=== PATIENT | male | born 1975 | race Hispanic/Latino ===

== ENCOUNTER 2019-06-21 12:10 | Emergency (ER) | payer SELFPAY ==
--- NOTE | 2019-06-21 12:42 | RAD REPORT ---
EXAM DESCRIPTION: CT - Head Brain Wo Cont - 06/21/2019 12:33 pm CLINICAL HISTORY: HEADACHE Trauma, head injury and headache COMPARISON: No comparisons TECHNIQUE: All CT scans are performed using dose optimization technique as appropriate and may inclu de automated exposure control or mA/KV adjustment according to patient size. FINDINGS: No intracranial hemorrhage, hydrocephalus or extra-axial fluid collection.No areas of brai n edema or evidence of midline shift. The paranasal sinuses and mastoids are clear. The calvarium is intact. IMPRESSION: No acute intracranial abnormality.
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
[2019-06-21 13:34] VITALS: BP 125/92; TEMP 97.9; O2SAT 100
== END 2019-06-21 13:29 | disposition home or self-care (01) ==
LOC: ER 12:10
DX: R51 Headache (principal); V43.52XA Car driver injured in collision with other type car in traffic accident, initial encounter; Z88.6 Allergy status to analgesic agent
CPT/HCPCS: 70450; 99284

== ENCOUNTER 2019-08-22 18:10 | Emergency (ER) | payer OTHER ==
[2019-08-22 18:47] LABS: Absolute Lymphocytes (CBC) 0.3 K/uL (0.7-4.9); Basophils % 0.1 % (0-1.3); Hematocrit 49.1 % (39.6-49.0); Lymphocytes % 2.1 % (15.3-44.8); MPV 10.9 fL (7.6-11.3); RBC Red Blood Cell Count 5.44 M/uL (4.33-5.43)
[2019-08-22] MEDS ORDERED: ONDANSETRON 4 MG/2 ML VIAL ONE ×2 (19:04→21:19)
[2019-08-22] MEDS ORDERED: MORPHINE 4 MG/ML SYR ONE (19:04)
[2019-08-22] MEDS ORDERED: NA CHLORIDE 0.9% 1,000 ML ONE (19:05)
[2019-08-22 19:11] LABS: ALT/SGPT 36 U/L (12-78); Albumin 4.4 g/dL (3.4-5.0); Alkaline Phosphatase 114 U/L (45-117); BUN Blood Urea Nitrogen 13 mg/dL (7-18); Bicarbonate 26 mmol/L (21-32); Bilirubin Direct 0.2 mg/dL (0-0.2); Bilirubin Total 0.7 mg/dL (0.2-1.0); Glucose Level 126 mg/dL (74-106); Lipase 103 U/L (73-393); Potassium 3.6 mmol/L (3.5-5.1); Protein, Total 8.6 g/dL (6.4-8.2); Sodium Level 140 mmol/L (136-145)
[2019-08-22 19:16] LABS: AST/SGOT < 3 U/L (15-37)
[2019-08-22 19:54] LABS: Blood Morphology Comment NOT SEEN (NOT SEEN); Platelet Estimate DECR; Urine White Blood Cell Casts OK
--- NOTE | 2019-08-22 20:41 | RAD REPORT ---
EXAM DESCRIPTION: CT - Abdomen Pelvis W Contrast - 08/22/2019 8:11 pm CLINICAL HISTORY: ABD PAIN, diarrhea, abdominal AA COMPARISON: None. TECHNIQUE: Biphasic, helical CT imaging of the abdomen and pelvis was performed following 100 ml non -ionic IV contrast. No oral contrast administered. All CT scans are performed using dose optimization technique as appropriate and may include automated exposure control or mA/KV adjustment according to patient size. FINDINGS: No suspicious findings in the lung bases. The liver, spleen, and pancreas show no suspicious findings. Gallbladder and biliary tree are also wi thout suspicious finding. Symmetric renal function is seen with no hydronephrosis or suspicious renal mass. No pyelonephritis o r acute parenchymal process. No bladder abnormalities. No adrenal abnormalities. Fluid is distended by fluid. No gastric wall thickening or mass. Gastric outlet not suspected. Multip le fluid-filled nondilated small bowel loops are present. Fluid filled right-side colon noted. No fidencio endicitis findings. No colon mass. Patient has very minimal diverticulosis on the left side. No free air, free fluid or inflammatory stranding. No hernia, mass or bulky lymphadenopathy. No suspicious bony findings. IMPRESSION: Nonspecific gastroenteritis pattern. No obstruction, free air or surgically emergent finding.
[2019-08-22] MEDS ORDERED: ACETAMINOPHEN 500 MG TAB ONE ×2 (21:07→21:17)
--- NOTE | 2019-08-22 21:17 | ER ---
Nurse's Notes [facility] Name: Wesley Barnes Age: 44 yrs Sex: Male : 1975 Arrival Date: 08/22/2019 Time: 18:12 Bed 25 Private MD: Diagnosis: Diarrhea, unspecified;Fever, unspecified;Nausea Presentation: 08/22 18:17 Presenting complaint: Patient states: Woke up feeling fine, then started having nausea jl7 and diarrhea about 0600 with body aches, reports having diarrhea "30 times today.". Transition of care: patient was not received from another setting of care. Onset of symptoms was August 22, 2019. Risk Assessment: Do you want to hurt yourself or someone else? Patient reports no desire to harm self or others. Initial Sepsis Screen: Does the patient meet any 2 criteria? HR > 90 bpm. No. Patient's initial sepsis screen is negative. Does the patient have a suspected source of infection? Yes:. Care prior to arrival: None. 18:17 Method Of Arrival: Ambulatory 7 18:17 Acuity: KEYLA 3 jl7 Historical: - Allergies: 18:19 Aspirin; jl7 - Home Meds: 18:19 None [Active]; jl7 - PMHx: 18:19 None; jl7 - PSHx: 18:19 Tonsillectomy; jl7 - Immunization history:: Adult Immunizations not up to date. - Social history:: Smoking status: Patient/guardian denies using tobacco. - Ebola Screening: : No symptoms or risks identified at this time. Screenin:42 Abuse screen: Denies threats or abuse. Denies injuries from another. Nutritional mg2 screening: No deficits noted. Tuberculosis screening: No symptoms or risk factors identified. Fall Risk None identified. IV access (20 points). Assessment: 18:40 General: Appears in no apparent distress. comfortable, Behavior is calm, cooperative. mg2 Pain: Complains of pain in abdomen Pain does not radiate. Pain currently is 5 out of 10 on a pain scale. Quality of pain is described as aching, Pain began gradually. Neuro: Level of Consciousness is awake, alert, Oriented to person, place, time, situation. Cardiovascular: Capillary refill < 3 seconds Patient's skin is warm and dry. Respiratory: Airway is patent Respiratory effort is even, unlabored, Respiratory pattern is regular, symmetrical. GI: Bowel sounds present X 4 quads. Abd is soft and non tender Reports lower abdominal pain, upper abdominal pain, diarrhea, nausea. : No signs and/or symptoms were reported regarding the genitourinary system. EENT: No signs and/or symptoms were reported regarding the EENT system. Derm: Skin is intact, is healthy with good turgor, Skin is pink, warm \\T\\ dry. normal. Musculoskeletal: Circulation, motion, and sensation intact. Capillary refill < 3 seconds. Vital Signs: 18:19 BP 121 / 79; Pulse 94; Resp 17 S; Temp 100.4(O); Pulse Ox 98% on R/A; Weight 90.72 kg jl7 (R); Height 5 ft. 8 in. (172.72 cm) (R); Pain 10/10; 20:32 BP 118 / 69; Pulse 78; Resp 18; Pulse Ox 95% on R/A; mg2 21:20 BP 115 / 78; Pulse 80; Resp 18; Temp 100.9(O); Pulse Ox 100% on R/A; mg2 18:19 Body Mass Index 30.41 (90.72 kg, 172.72 cm) jl7 ED Course: 18:12 Patient arrived in ED. as 18:19 Triage completed. jl7 18:19 Arm band placed on right wrist. Patient placed in an exam room, on a stretcher, in view jl7 of staff members. 18:21 Fel[facility] Corral [facility] la1 18:21 Daniel Lewis MD is Attending Physician. la1 18:23 Julio Ha RN is Primary Nurse. mg2 18:36 Initial lab(s) drawn, by va, sent to lab. Inserted saline lock: 20 gauge in right jp3 antecubital area, using aseptic technique. Blood collected. Patient maintains SpO2 saturation greater than 95% on room air. 18:37 Bed in low position. Call light in reach. Side rails up X 1. Warm blanket given. Pillow jp3 given. Verbal reassurance given. Pulse ox on. NIBP on. 18:38 Basic Metabolic Panel Sent. jp3 18:38 CBC with Diff Sent. jp3 18:38 Creatinine for Radiology Sent. jp3 18:38 Hepatic Function Sent. jp3 18:38 Lipase Sent. jp3 18:42 No provider procedures requiring assistance completed. mg2 20:11 CT Abd/Pelvis - IV Contrast Only In Process Unspecified. EDMS 21:28 IV discontinued, intact, bleeding controlled, No redness/swelling at site. Pressure mg2 dressing applied. Administered Medications: 19:09 Drug: NS 0.9% 1000 ml Route: IV; Rate: 1000 ml; Site: right antecubital; mg2 23:06 Follow up: Response: No adverse reaction; IV Status: Completed infusion; IV Intake: mg2 1000ml 19:09 Drug: Zofran 4 mg Route: IVP; Site: right antecubital; mg2 20:00 Follow up: Response: No adverse reaction mg2 19:09 Drug: morphine 4 mg Route: IVP; Site: right antecubital; mg2 20:00 Follow up: Response: No adverse reaction; RASS: Alert and Calm (0) mg2 21:19 Drug: Zofran 4 mg Route: IVP; Site: right antecubital; mg2 21:20 Follow up: Response: No adverse reaction; Medication administered at discharge. mg2 21:20 Drug: Tylenol 1000 mg Route: PO; mg2 21:21 Follow up: Response: No adverse reaction; Medication administered at discharge. mg2 Intake: 23:06 IV: 1000ml; Total: 1000ml. mg2 Outcome: 21:17 Discharge ordered by . la1 21:28 Discharged to home ambulatory. mg2 21:28 Condition: stable 21:28 Discharge instructions given to patient, Instructed on discharge instructions, follow mg2 up and referral plans. medication usage, Demonstrated understanding of instructions, follow-up care, medications, Prescriptions given X 1. 21:29 Patient left the ED. mg2 Signatures: Dispatcher [employer] EDMS Kandi Valle Lee, PHARMACY INFORMATICS SPECIALIST-C PHARMACY INFORMATICS SPECIALIST-Cla1 Michaelle Jang RN RN jl7 Julio Ha, RN RN mg2 Mann Leung jp3
--- NOTE | 2019-08-22 21:18 | EDPHYS ---
Physician Documentation [facility] Name: Wesley Barnes Age: 44 yrs Sex: Male : 1975 Arrival Date: 08/22/2019 Time: 18:12 Bed 25 Private MD: ED Physician Daniel Lewis HPI: 08/22 18:43 This 44 yrs old Male presents to ER via Ambulatory with complaints of la1 Abdominal Pain, Nausea/Vomiting. 18:43 The patient presents with abdominal pain in the lower abdomen. Onset: The la1 symptoms/episode began/occurred this morning. The symptoms do not radiate. Associated signs and symptoms: Pertinent positives: nausea and vomiting, diarrhea, Pertinent negatives: blood in stools, constipation, hematuria, nausea. The symptoms are described as crampy, sharp. Modifying factors: The symptoms are alleviated by nothing, the symptoms are aggravated by alcohol. Severity of pain: At its worst the pain was moderate. The patient has not experienced similar symptoms in the past. Pt woke up this morning and has been having lower abd pain and cramping since, has had more than 10 episodes of diarrhea today . Historical: - Allergies: 18:19 Aspirin; jl7 - Home Meds: 18:19 None [Active]; jl7 - PMHx: 18:19 None; jl7 - PSHx: 18:19 Tonsillectomy; jl7 - Immunization history:: Adult Immunizations not up to date. - Social history:: Smoking status: Patient/guardian denies using tobacco. - Ebola Screening: : No symptoms or risks identified at this time. ROS: 18:45 Constitutional: Negative for fever, chills, and weight loss, Eyes: Negative for injury, la1 pain, redness, and discharge, ENT: Negative for injury, pain, and discharge, Neck: Negative for injury, pain, and swelling, Cardiovascular: Negative for chest pain, palpitations, and edema, Respiratory: Negative for shortness of breath, cough, wheezing, and pleuritic chest pain. 18:45 Back: Negative for injury and pain, : Negative for injury, bleeding, discharge, and swelling, MS/Extremity: Negative for injury and deformity, Neuro: Negative for headache, weakness, numbness, tingling, and seizure. 18:45 Abdomen/GI: Positive for abdominal pain, nausea, vomiting, and diarrhea. Exam: 18:46 Constitutional: This is a well developed, well nourished patient who is awake, alert, la1 and in no acute distress. Head/Face: Normocephalic, atraumatic. Eyes: Pupils equal round and reactive to light, extra-ocular motions intact. Periorbital areas with no swelling, redness, or edema. ENT: Mucous membranes moist. Neck: . No Meningismus. Chest/axilla: Normal chest wall appearance and motion. Nontender with no deformity. No lesions are appreciated. Cardiovascular: Regular rate and rhythm with a normal S1 and S2. No gallops, murmurs, or rubs. Normal PMI, no JVD. No pulse deficits. Respiratory: Lungs have equal breath sounds bilaterally, clear to auscultation and percussion. No rales, rhonchi or wheezes noted. No increased work of breathing, no retractions or nasal flaring. 18:46 Abdomen/GI: Inspection: abdomen appears normal, Bowel sounds: normal, in all quadrants, Palpation: soft, in all quadrants, Indicators: McBurney's point is not tender, Puente's sign is negative, Rovsing's sign is negative, Obturator sign is negative, Psoas sign is negative. Vital Signs: 18:19 BP 121 / 79; Pulse 94; Resp 17 S; Temp 100.4(O); Pulse Ox 98% on R/A; Weight 90.72 kg jl7 (R); Height 5 ft. 8 in. (172.72 cm) (R); Pain 10/10; 20:32 BP 118 / 69; Pulse 78; Resp 18; Pulse Ox 95% on R/A; mg2 21:20 BP 115 / 78; Pulse 80; Resp 18; Temp 100.9(O); Pulse Ox 100% on R/A; mg2 18:19 Body Mass Index 30.41 (90.72 kg, 172.72 cm) jl7 MDM: 18:21 Patient medically screened. la1 21:15 Differential diagnosis: appendicitis, bowel obstruction, gastritis, gastroesophageal la1 reflux disease, GI Bleed, Hepatitis, pancreatitis, Peptic Ulcer Disease, Perf. Duodenal Ulcer, shigella. Data reviewed: vital signs, nurses notes, lab test result(s), radiologic studies, I have discussed the patient's presentation/case with the attending Emergency Department Physician; and as a result, I will discharge patient. Data interpreted: Pulse oximetry: on room air is 95 %. Interpretation: normal. Counseling: I had a detailed discussion with the patient and/or guardian regarding: the historical points, exam findings, and any diagnostic results supporting the discharge/admit diagnosis, lab results, radiology results, the need for outpatient follow up, a family practitioner, to return to the emergency department if symptoms worsen or persist or if there are any questions or concerns that arise at home. Special discussion: Based on the patient's Hx, exam, and Dx evaluation, there is no indication for emergent surgery or inpatient Tx. It is understood by the patient/guardian that if the Sx's persist or worsen they need to return immediately for re-evaluation. I discussed with the patient/guardian in detail that at this point there is no indication for admission to the hospital. It is understood, however, that if the symptoms persist or worsen the patient needs to return immediately for re-evaluation. I discussed with the patient/guardian that the patient's current presentation does not indicate dosing of antibiotics. They should follow-up with their primary care provider and return if the symptoms persist or progress. ED course: instructed pt to be seen in ED or PCP if worsening of symptoms or blood in stool. 08/22 18:23 Order name: Basic Metabolic Panel; Complete Time: 19:38 mg2 08/22 18:23 Order name: CBC with Diff; Complete Time: 20:48 mg2 08/22 18:23 Order name: Creatinine for Radiology; Complete Time: 19:03 mg2 08/22 18:23 Order name: Hepatic Function; Complete Time: 19:38 mg2 08/22 18:23 Order name: Lipase; Complete Time: 19:38 mg2 08/22 19:54 Order name: CBC Smear Scan; Complete Time: 20:48 EDMS 08/22 18:23 Order name: IV Saline Lock; Complete Time: 18:38 mg2 08/22 18:23 Order name: Labs collected and sent; Complete Time: 18:38 mg2 13 19:03 Order name: CT Abd/Pelvis - IV Contrast Only; Complete Time: 20:48 la1 Administered Medications: 19:09 Drug: NS 0.9% 1000 ml Route: IV; Rate: 1000 ml; Site: right antecubital; mg2 23:06 Follow up: Response: No adverse reaction; IV Status: Completed infusion; IV Intake: mg2 1000ml 19:09 Drug: Zofran 4 mg Route: IVP; Site: right antecubital; mg2 20:00 Follow up: Response: No adverse reaction mg2 19:09 Drug: morphine 4 mg Route: IVP; Site: right antecubital; mg2 20:00 Follow up: Response: No adverse reaction; RASS: Alert and Calm (0) mg2 21:19 Drug: Zofran 4 mg Route: IVP; Site: right antecubital; mg2 21:20 Follow up: Response: No adverse reaction; Medication administered at discharge. mg2 21:20 Drug: Tylenol 1000 mg Route: PO; mg2 21:21 Follow up: Response: No adverse reaction; Medication administered at discharge. mg2 Disposition: 08/22/19 21:17 Discharged to Home. Impression: Diarrhea, unspecified, Fever, unspecified, Nausea. - Condition is Stable. - Discharge Instructions: Food Choices to Help Relieve Diarrhea, Adult, Diarrhea, Adult, Fever, Adult, Food Poisoning. - Prescriptions for Zofran 4 mg Oral Tablet - take 1 tablet by ORAL route every 12 hours As needed; 20 tablet. - Medication Reconciliation Form, Thank You Letter form. - Follow up: Private Physician; When: 2 - 3 days; Reason: Recheck today's complaints, Re-evaluation by your physician. - Problem is new. Signatures: Dispatcher [employer] EDIN Feliciano Corral, LOCOMOTIVE FIRER-C LOCOMOTIVE FIRER-Cla1 Michaelle Jang RN RN jl7 Julio Ha RN RN mg2 Corrections: (The following items were deleted from the chart) 21:29 21:17 08/22/2019 21:17 Discharged to Home. Impression: Diarrhea, unspecified; Fever, mg2 unspecified; Nausea. Condition is Stable. Forms are Medication Reconciliation Form, Thank You Letter, Antibiotic Education, Prescription Opioid Use. Follow up: Private Physician; When: 2 - 3 days; Reason: Recheck today's complaints, Re-evaluation by your physician. Problem is new. la1
[2019-08-22 23:41] VITALS: BP 115/78; TEMP 100.9; O2SAT 100
--- NOTE | 2019-08-23 18:49 | EKG ---
Test Date: 2019-08-22 Test Time: 21:13:56 Tongue And Quarter Stitcher: MG MEASUREMENT RESULTS: Intervals: Rate: 97 CA: 156 QRSD: 88 QT: 336 QTc: 426 [place]: P: 55 CA: 156 QRS: 48 T: 41 INTERPRETIVE STATEMENTS: Normal sinus rhythm Normal ECG No previous ECG available for comparison Electronically Signed On 08-23-19 18:47:11 TELEPHONE SEX WORKER by Tucker Guerra
== END 2019-08-22 21:29 | disposition home or self-care (01) ==
LOC: ER 18:10
DX: R19.7 Diarrhea, unspecified (principal); R50.9 Fever, unspecified; Z88.6 Allergy status to analgesic agent
CPT/HCPCS: 96361; 93005; 85025; 80048; 36415; 80076; 83690; 74177; 96375; 96374; 99284; Q9967; J7030; J2405 ×2